=== PATIENT | male | born 1950 | race Caucasian/White ===

== ENCOUNTER 2020-05-27 14:47 | Emergency (ER) | payer MEDICARE, OTHER ==
[2020-05-27 14:59] VITALS: BP 155/68
--- NOTE | 2020-05-27 15:40 | ER Document Report ---
HPI - HPI Time Seen by Provider: 05/27/20 15:28 Pain Level: Denies Notes: 6-year-old male presents to the emergency room today for complaints of left ear pain that started approximately 2 weeks ago. Reports he is also having some nasal congestion as well for the last 2 weeks. Reports this is his fourth ear infection this year, he typically sees his primary care provider for this issue. Patient states he tried some Dramamine without any issues. Reports every time he starts to get some dizziness he knows it is related to his ear. Was unable to get to his primary care provider today who normally sees and treat him. Denies fevers, chills, chest pain,palpitations, shortness of breath, dyspnea, nausea, vomiting, diarrhea, abdominal pain, hematuria,blurred vision, double vision, loss of vision, speech changes, LH, syncope, headaches, wheezing, ST, URI, neck pain, weakness, bowel or bladder dysfunction, saddle anesthesia, numbness or tingling in bilateral upper or lower extremities equally, muscle paralysis, weakness in bilateral upper or lower extremities equally or rash. - EENT EENT: REPORTS: Ear Pain. DENIES: Eye problems - NEURO Neurology: DENIES: Headache - REPRODUCTIVE Reproductive: DENIES: : Past Medical History - General Information source: Patient - Social History Smoking Status: Never Smoker Chew tobacco use (# tins/day): No Frequency of alcohol use: None Drug Abuse: None Family History: Reviewed & Not Pertinent Patient has homicidal ideation: No - Past Medical History Cardiac Medical History: Reports: Hx Atrial Fibrillation - ablation, Hx Coronary Artery Disease, Hx Hypercholesterolemia, Hx Hypertension GI Medical History: Reports: Hx Gastroesophageal Reflux Disease Past Surgical History: Reports: Hx Appendectomy, Hx Cardiac Surgery - angioplasty; ablation, Hx Cholecystectomy, Hx Orthopedic Surgery - left hand from fusion, hips surgery - Immunizations Hx Diphtheria, Pertussis, Tetanus Vaccination: - unknown Vertical Provider Document - CONSTITUTIONAL Agree With Documented VS: Yes Exam Limitations: No Limitations General Appearance: WD/WN Notes: MEDICATIONS: I agree with the patient medications as charted by the RN. ALLERGIES: I agree with the allergies as charted by the RN. PAST MEDICAL HISTORY/PAST SURGICAL HISTORY: Reviewed and agree as charted by RN. SOCIAL HISTORY: Reviewed and agree as charted by RN. FAMILY HISTORY: No significant familial comorbid conditions directly related to patient complaint PHYSICAL EXAMINATION:reviewed vital signs by RN GENERAL: Well-appearing, well-nourished adult in no acute distress. HEAD: Atraumatic, normocephalic. EYES: Pupils equal round and reactive to light, extraocular movements intact, sclera anicteric, conjunctiva are normal. Tears noted ENT: Left TM with erythema and intact TM intact, noted effusion, no erythema bilaterally. R TM with effusion no erythema and intact. nares boggy bilaterally, oropharynx with erythema and without exudates. Moist mucous membranes. No mastoid tenderness on palpation bilaterally NECK: Normal range of motion, supple without lymphadenopathy LUNGS: Breath sounds clear to auscultation bilaterally and equal. No wheezes rales or rhonchi. No retractions HEART: Regular rate and rhythm without murmurs ABDOMEN: Soft, nontender, nondistended abdomen. No guarding, no rebound. No masses appreciated. Musculoskeletal: Normal range of motion, no pitting or edema. No cyanosis. NEUROLOGICAL: Cranial nerves grossly intact. Normal speech, normal gait exam for age. Normal sensory, motor, and reflex exams. PSYCH: Normal mood, normal affect. SKIN: Warm, Dry, normal turgor, no rashes or lesions noted - INFECTION CONTROL TRAVEL OUTSIDE OF THE [place] IN LAST 30 DAYS: No Course - Re-evaluation Re-evalutation: 05/27/20 15:41 Afebrile vital stable no distress. Nurses notes reviewed. Clinical examination does show that his left tympanic membrane with erythema and effusion, TM intact. Tenderness on left preauricular area. We will start on outpatient antibiotic therapy, Augmentin twice a day for 10 days as well as prednisone as well as a referral to ear nose and throat within the next 24 to 48 hours for reevaluation. Follow-up with primary care provider within the next 24 to 48 hours. after performing a Medical Screening Examination, I estimate there is LOW risk for malignant otitis media, mastoiditis, MENINGITIS, or ACUTE CORONARY SYNDROME, thus I consider the discharge disposition reasonable. I have reevaluated this patient multiple times and no significant life threatening changes are noted. The patient and I have discussed the diagnosis and risks, and we agree with discharging home to follow-up on an outpatient basis with the understanding that symptoms and presentations can change. We also discussed returning to the Emergency Department immediately if new or worsening symptoms occur. We have discussed the symptoms which are most concerning (e.g., high fevers, confusion) that necessitate immediate return. - Vital Signs Vital signs: Temp Pulse Resp BP Pulse Ox 97.7 F 80 20 155/68 H 97 05/27/20 14:58 05/27/20 14:58 05/27/20 14:58 05/27/20 14:58 05/27/20 14:58 Discharge - Discharge Clinical Impression: Left otitis media Qualifiers: Otitis media type: suppurative Chronicity: acute Recurrence: recurrent Spontaneous tympanic membrane rupture: without spontaneous rupture Qualified Code(s): H66.005 - Acute suppurative otitis media without spontaneous rupture of ear drum, recurrent, left ear Condition: Stable Disposition: HOME, SELF-CARE Instructions: Otitis Media ([facility]), Augmentin ([facility]) Additional Instructions: you are being treated today for left ear infection, start on Augmentin antibiotic medication which you need to take twice a day for 10 days as well as prednisone as directed. You are being referred to an ear nose and throat doctor, please follow-up in the next 24 to 48 hours as well with your primary care provider. You can alternate between Tylenol and ibuprofen for pain cont rol. Return immediately for any new or worsening symptoms. Follow up with primary care provider, call tomorrow to make followup appointment. Prescriptions: Amoxicillin/Potassium Clav [Augmentin 875-125 Tablet] 1 tab PO BID #20 tab Prednisone [Deltasone 20 mg Tablet] 3 tab PO DAILY 5 Days #15 tablet Referrals: KELLIE VIVEROS FNP-C [Primary Care Provider] - Follow up as needed JOANNA DAVID MD [ACTIVE STAFF] -
== END 2020-05-27 15:44 | disposition home or self-care (01) ==
LOC: ER 14:47
DX: H66.005 Acute suppurative otitis media without spontaneous rupture of ear drum, recurrent, left ear (principal); H92.02 Otalgia, left ear; R09.81 Nasal congestion; K31.9 Disease of stomach and duodenum, unspecified; I25.10 Atherosclerotic heart disease of native coronary artery without angina pectoris; I10 Essential (primary) hypertension; E78.00 Pure hypercholesterolemia, unspecified; Z79.899 Other long term (current) drug therapy
CPT/HCPCS: 99283